=== PATIENT | male | born 1985 ===

== ENCOUNTER 2017-04-23 16:17 | Emergency (ER) | payer OTHER ==
[2017-04-23 16:23] VITALS: BP 153/87; PULSE 70; RESP 20; TEMP 98.8
--- NOTE | 2017-04-23 16:48 | ED ---
ENT HPI - General Chief complaint: Dental/Oral Stated complaint: Tooth Ache Time Seen by Provider: 04/23/17 16:37 Source: patient, RN notes reviewed, old records reviewed Mode of arrival: ambulatory Limitations: no limitations - History of Present Illness Initial comments: Is a 31-year-old male presenting to the emergency Department chief complaint of left lower tooth pain. Patient reports it's been painful since Sunday. He reports his symptoms are drawn Motrin but does not help. He states he did call a dentist and does plan to see him but he really needed a concern on antibiotic before hand. Patient denies any fever or chills, difficulty opening or closing his mouth. Patient reports that he is up-to-date on vaccinations. Patient reports never had tooth pain like this before. Patient denies any recent fever, chills, shortness of breath, chest pain, back pain, abdominal pain, nausea vomiting, numbness or tingling, dysuria or hematuria, constipation or diarrhea, headaches or visual changes, or any other current symptoms - Related Data Previous Rx's Medication Instructions Recorded HYDROcodone/APAP 5-325MG [[place] 1 tab PO Q6HR PRN #12 tab 04/23/17 5-325] Penicillin V Potassium [Pen Vee K] 500 mg PO QID #40 tab 04/23/17 Allergies Allergy/AdvReac Type Severity Reaction Status Date / Time No Known Allergies Allergy Verified 04/23/17 16:36 Review of Systems ROS Statement: Those systems with pertinent positive or pertinent negative responses have been documented in the HPI. ROS Other: All systems not noted in ROS Statement are negative. Past Medical History Past Medical History: No Reported History History of Any Multi-Drug Resistant Organisms: None Reported Past Surgical History: Cholecystectomy Past Psychological History: No Psychological Hx Reported Smoking Status: Current every day smoker Past Alcohol Use History: Occasional Past Drug Use History: None Reported General Exam - General Exam Comments Initial Comments: Pleasant 31-year-old male. No acute distress. Limitations: no limitations General appearance: alert, in no apparent distress Head exam: Present: atraumatic, normocephalic, normal inspection Eye exam: Present: normal appearance, PERRL, EOMI. Absent: scleral icterus, conjunctival injection, periorbital swelling ENT exam: Present: normal exam, mucous membranes moist, other (Patient reports pain over tooth #19. Patient has evidence of a minor chip in the tooth.) Neck exam: Present: normal inspection. Absent: tenderness, meningismus, lymphadenopathy Respiratory exam: Present: normal lung sounds bilaterally. Absent: respiratory distress, wheezes, rales, rhonchi, stridor Cardiovascular Exam: Present: regular rate, normal rhythm, normal heart sounds. Absent: systolic murmur, diastolic murmur, rubs, gallop, clicks GI/Abdominal exam: Present: soft, normal bowel sounds. Absent: distended, tenderness, guarding, rebound, rigid Extremities exam: Present: normal inspection, full ROM, normal capillary refill. Absent: tenderness, pedal edema, joint swelling, calf tenderness Back exam: Present: normal inspection Neurological exam: Present: alert, oriented X3, CN II-XII intact Psychiatric exam: Present: normal affect, normal mood Skin exam: Present: warm, dry, intact, normal color. Absent: rash Course Vital Signs 04/23/17 16:21 Temperature 98.8 F Pulse Rate 70 Respiratory 20 Rate Blood Pressure 153/87 O2 Sat by Pulse 98 Oximetry Medical Decision Making - Medical Decision Making Is a 31-year-old male presenting to the emergency Department chief complaint of left lower tooth pain. Patient reports it's been painful since Sunday. He reports his symptoms are drawn Motrin but does not help. He states he did call a dentist and does plan to see him but he really needed a concern on antibiotic before hand. Patient denies any fever or chills, difficulty opening or closing his mouth. Patient reports that he is up-to-date on vaccinations. Patient reports never had tooth pain like this before. Patient reports that he does have some irritation over tooth #19. Patient was started on Pen-Vee K and given pain medication. He does plan to follow-up with a dentist within the next 2-3 days. Patient agrees to treatment plan will comply. Return parameters were discussed. He does have full range of motion of the jaw. No significant swelling. Disposition Clinical Impression: Pain, dental Disposition: HOME SELF-CARE Condition: Good Instructions: Toothache (ED) Additional Instructions: [facility] [address] [place] [address] [phone] (existing clients only) For new clients: [phone] 1st consult: $50 (includes Xrays) Usually 30% less then private dentist for visits after. [employer] Have to pay $50 for Xrays anmd rest is covered. [phone] Prescriptions: HYDROcodone/APAP 5-325MG [[place] 5-325] 1 tab PO Q6HR PRN #12 tab PRN Reason: Pain Penicillin V Potassium [Pen Vee K] 500 mg PO QID #40 tab Referrals: Jenna Domingo DO [Primary Care Provider] - 1-2 days Time of Disposition: 16:48
== END 2017-04-23 16:59 | disposition home or self-care (01) ==
LOC: EC 16:17
DX: K08.89 Other specified disorders of teeth and supporting structures (principal); F17.200 Nicotine dependence, unspecified, uncomplicated
CPT/HCPCS: 99283

== ENCOUNTER 2019-06-11 17:03 | Observation (INO) | payer OTHER ==
[2019-06-11] MEDS ORDERED: MORPHINE SULFATE 4 MG/ML SYRINGE IV STA (17:27)
[2019-06-11] MEDS ORDERED: NITROGLYCERIN OINT 1 INCH/GM PACKET TOPICAL STA (17:27)
[2019-06-11] MEDS ORDERED: ASPIRIN 81 MG PO STA (17:27)
--- NOTE | 2019-06-11 17:29 | ED ---
General Adult HPI - General Chief complaint: Shortness of Breath Stated complaint: chest pain Time Seen by Provider: 06/11/19 17:12 Source: patient, EMS, RN notes reviewed Mode of arrival: EMS Limitations: no limitations - History of Present Illness Initial comments: Patient is a pleasant 33-year-old male presenting to the emergency Department with complaints of chest discomfort and shortness of breath. Onset was around an hour ago while cutting the grass. Discomfort was fairly sudden. Patient has severe discomfort of his right chest that he feels like it is on the inside. Patient also feels like he cannot take a deep breath. No history of similar symptoms previously. No improvement of symptoms with medication by EMS. No vomiting or diaphoresis. No history of similar symptoms. Sleep. No leg pain or leg swelling. - Related Data Home Medications Medication Instructions Recorded Confirmed No Known Home Medications 06/11/19 06/11/19 Allergies Allergy/AdvReac Type Severity Reaction Status Date / Time No Known Allergies Allergy Verified 06/11/19 17:47 Review of Systems ROS Statement: Those systems with pertinent positive or pertinent negative responses have been documented in the HPI. ROS Other: All systems not noted in ROS Statement are negative. Constitutional: Denies: fever Eyes: Denies: eye pain ENT: Denies: ear pain Respiratory: Reports: dyspnea Cardiovascular: Reports: chest pain Endocrine: Denies: fatigue Gastrointestinal: Denies: abdominal pain Genitourinary: Denies: dysuria Musculoskeletal: Denies: back pain Skin: Denies: rash Neurological: Denies: weakness Past Medical History Past Medical History: No Reported History History of Any Multi-Drug Resistant Organisms: None Reported Past Surgical History: Cholecystectomy Past Psychological History: No Psychological Hx Reported Smoking Status: Current every day smoker Past Alcohol Use History: Occasional Past Drug Use History: None Reported General Exam Limitations: no limitations General appearance: alert, other (Patient does appear uncomfortable) Head exam: Present: atraumatic, normocephalic Eye exam: Present: normal appearance, PERRL ENT exam: Present: normal oropharynx Neck exam: Present: normal inspection Respiratory exam: Present: normal lung sounds bilaterally. Absent: respiratory distress Cardiovascular Exam: Present: regular rate, normal rhythm Expanded Peripheral pulses: 2+: Radial (R), Radial (L), Dorsalis Pedis (R), Dorsalis Pedis (L) GI/Abdominal exam: Present: soft. Absent: distended, tenderness, guarding, rebound, rigid Extremities exam: Present: normal inspection. Absent: pedal edema, calf tenderness Back exam: Present: normal inspection. Absent: tenderness Neurological exam: Present: alert Psychiatric exam: Present: anxious Skin exam: Present: normal color Course Vital Signs 06/11/19 06/11/19 06/11/19 17:08 17:10 17:15 Temperature 99.3 F Pulse Rate 94 Respiratory 28 H Rate Blood Pressure 135/94 135/94 O2 Sat by Pulse 98 95 94 L Oximetry 06/11/19 06/11/19 06/11/19 17:20 17:30 17:40 Temperature Pulse Rate 86 89 66 Respiratory 31 H 18 17 Rate Blood Pressure 147/99 147/99 145/104 O2 Sat by Pulse 96 98 98 Oximetry 06/11/19 06/11/19 06/11/19 17:41 17:50 18:00 Temperature Pulse Rate 78 65 Respiratory 28 H 32 H 20 Rate Blood Pressure 128/89 128/89 O2 Sat by Pulse 98 99 Oximetry 06/11/19 18:10 Temperature Pulse Rate 67 Respiratory 24 Rate Blood Pressure 124/84 O2 Sat by Pulse 98 Oximetry - Reevaluation(s) Reevaluation #1: 06/11/19 17:51 Patient and family updated on results so far EKG Findings - EKG Comments: EKG Findings:: Normal sinus rhythm 84. MN 118. QRS 92. QT 354. QTC 418. Normal axis. Normal QRS. No acute ST change. Medical Decision Making - Medical Decision Making Patient reevaluated and resting comfortably in bed. Patient is symptom-free at this time. Patient updated on results and plan. Case was discussed in detail with Dr. cotto, who will admit covering for hospital call. - Lab Data Result diagrams: 06/11/19 17:15 06/11/19 17:15 Lab Results 06/11/19 06/11/19 06/11/19 Range/Units 17:15 17:15 17:15 WBC 11.6 H (3.8-10.6) k/uL RBC 6.15 H (4.30-5.90) m/uL Hgb 16.4 (13.0-17.5) gm/dL Hct 50.2 (39.0-53.0) % MCV 81.6 (80.0-100.0) fL MCH 26.6 (25.0-35.0) pg MCHC 32.6 (31.0-37.0) g/dL RDW 14.2 (11.5-15.5) % Plt Count 321 (150-450) k/uL Neutrophils % 74 % Lymphocytes % 21 % Monocytes % 4 % Eosinophils % 1 % Basophils % 0 % Neutrophils # 8.5 H (1.3-7.7) k/uL Lymphocytes # 2.5 (1.0-4.8) k/uL Monocytes # 0.4 (0-1.0) k/uL Eosinophils # 0.1 (0-0.7) k/uL Basophils # 0.1 (0-0.2) k/uL PT 11.9 (9.0-12.0) sec INR 1.1 (<1.2) APTT 23.5 (22.0-30.0) sec D-Dimer 0.41 (<0.60) mg/L FEU Sodium 141 (137-145) mmol/L Potassium 4.2 (3.5-5.1) mmol/L Chloride 109 H (98-107) mmol/L Carbon Dioxide 19 L (22-30) mmol/L Anion Gap 13 mmol/L BUN 17 (9-20) mg/dL Creatinine 0.82 (0.66-1.25) mg/dL Est GFR (CKD-EPI)AfAm >90 (>60 ml/min/1.73 sqM) Est GFR (CKD-EPI)NonAf >90 (>60 ml/min/1.73 sqM) Glucose 100 H (74-99) mg/dL Calcium 9.4 (8.4-10.2) mg/dL Magnesium 1.7 (1.6-2.3) mg/dL Total Bilirubin 0.9 (0.2-1.3) mg/dL AST 40 (17-59) U/L ALT 17 L (21-72) U/L Alkaline Phosphatase 91 (38-126) U/L Creatine Kinase 50 L (55-170) U/L Troponin I (0.000-0.034) ng/mL Total Protein 6.2 L (6.3-8.2) g/dL Albumin 3.8 (3.5-5.0) g/dL 06/11/19 Range/Units 17:15 WBC (3.8-10.6) k/uL RBC (4.30-5.90) m/uL Hgb (13.0-17.5) gm/dL Hct (39.0-53.0) % MCV (80.0-100.0) fL MCH (25.0-35.0) pg MCHC (31.0-37.0) g/dL RDW (11.5-15.5) % Plt Count (150-450) k/uL Neutrophils % % Lymphocytes % % Monocytes % % Eosinophils % % Basophils % % Neutrophils # (1.3-7.7) k/uL Lymphocytes # (1.0-4.8) k/uL Monocytes # (0-1.0) k/uL Eosinophils # (0-0.7) k/uL Basophils # (0-0.2) k/uL PT (9.0-12.0) sec INR (<1.2) APTT (22.0-30.0) sec D-Dimer (<0.60) mg/L FEU Sodium (137-145) mmol/L Potassium (3.5-5.1) mmol/L Chloride (98-107) mmol/L Carbon Dioxide (22-30) mmol/L Anion Gap mmol/L BUN (9-20) mg/dL Creatinine (0.66-1.25) mg/dL Est GFR (CKD-EPI)AfAm (>60 ml/min/1.73 sqM) Est GFR (CKD-EPI)NonAf (>60 ml/min/1.73 sqM) Glucose (74-99) mg/dL Calcium (8.4-10.2) mg/dL Magnesium (1.6-2.3) mg/dL Total Bilirubin (0.2-1.3) mg/dL AST (17-59) U/L ALT (21-72) U/L Alkaline Phosphatase (38-126) U/L Creatine Kinase (55-170) U/L Troponin I <0.012 (0.000-0.034) ng/mL Total Protein (6.3-8.2) g/dL Albumin (3.5-5.0) g/dL - Radiology Data Radiology results: image reviewed (Chest x-ray shows no acute process) Disposition Clinical Impression: Chest pain Disposition: ADMITTED IP TO THIS HOSP Is patient prescribed a controlled substance at d/c from ED?: No Referrals: None,Stated [Primary Care Provider] - 1-2 days Decision Time: 18:31
[2019-06-11 17:45] LABS: Basophils # (A) 0.1 k/uL (0-0.2); Basophils % (A) 0 %; Eosinophils # (A) 0.1 k/uL (0-0.7); Eosinophils % (A) 1 %; HCT 50.2 % (39.0-53.0); HGB 16.4 gm/dL (13.0-17.5); Lymphocytes # (A) 2.5 k/uL (1.0-4.8); Lymphocytes % (A) 21 %; MCH 26.6 pg (25.0-35.0); MCHC 32.6 g/dL (31.0-37.0); MCV 81.6 fL (80.0-100.0); Mean Platelet Volume 7.1; Monocytes # (A) 0.4 k/uL (0-1.0); Monocytes % (A) 4 %; Neutrophils # (A) 8.5 k/uL (1.3-7.7); Neutrophils % (A) 74 %; Platelet Count 321 k/uL (150-450); RBC 6.15 m/uL (4.30-5.90); RDW 14.2 % (11.5-15.5); WBC 11.6 k/uL (3.8-10.6)
--- NOTE | 2019-06-11 17:46 | XR ---
EXAMINATION: XR chest 1V portable DATE AND TIME: 06/11/2019 5:35 PM CLINICAL INDICATION: PHH; chest pain TECHNIQUE: AP upright portable COMPARISON: None FINDINGS: The lungs are clear. The pleural spaces are negative. The cardiac silhouette is not enlarged. The remainder of the mediastinal silhouette is unremarkable. The skeletal structures and soft tissues are negative for acute findings. IMPRESSION: NO ACUTE PROCESS.
[2019-06-11 17:58] LABS: D-Dimer 0.41 mg/L FEU (<0.60); INR 1.1 (<1.2); Partial Thromboplastin Time 23.5 sec (22.0-30.0); Prothrombin Time 11.9 sec (9.0-12.0)
[2019-06-11 18:19] LABS: ALT 17 U/L (21-72); AST 40 U/L (17-59); African American GFR (CKD) >90 (>60 ml/min/1.73 sqM); Albumin 3.8 g/dL (3.5-5.0); Alkaline Phosphatase 91 U/L (38-126); Anion Gap 13 mmol/L; Blood Urea Nitrogen 17 mg/dL (9-20); Calcium 9.4 mg/dL (8.4-10.2); Carbon Dioxide 19 mmol/L (22-30); Chloride 109 mmol/L (98-107); Creatine Kinase 50 U/L (55-170); Glucose 100 mg/dL (74-99); Magnesium 1.7 mg/dL (1.6-2.3); Potassium 4.2 mmol/L (3.5-5.1); Sodium 141 mmol/L (137-145); Total Bilirubin 0.9 mg/dL (0.2-1.3); Total Protein 6.2 g/dL (6.3-8.2)
[2019-06-11] MEDS ORDERED: NITROGLYCERIN SL TABS 0.4 MG TAB SUBLINGUAL PRN (18:32)
[2019-06-11 19:56] VITALS: RESP 16
--- NOTE | 2019-06-11 19:56 | P.HPIM ---
History of Present Illness H&P Date: 06/11/19 Chief Complaint: Chest pain The patient is a 33-year-old male with no significant past medical history other than smoking who presents to the ER via EMS with chief complain of chest pain. Apparently the patient began having right-sided discomfort when mowing the lawn earlier today, the patient reported severe and nonradiating right-sided chest pressure with associated shortness of breath and episodes of lightheadedness, the patient reported he could not get any air in and reported that his discomfort was worsened by deep breaths, he denies any cough, denies any subjective fevers chills or night sweats. The patient reports the pain was relieved by nitroglycerin and currently rates his pain at a 2/10. The patient denies any abdominal pain nausea vomiting or diaphoresis. He reports a family history of congestive heart failure and hypertension, he denies any focal weakness slurred speech or facial droop In the ER the patient had a comprehensive workup white count was 11.6 serum sodium 141 serum potassium 4.2 serum bicarb 19 blood sugar 100, EKG showed normal sinus rhythm with a rate of 84. Chest x-ray showed no acute process, her troponin was less than 0.012. Patient was recommended for admission to rule out ACS Review of Systems Pertinent positives per HPI all other results as well as eyes negative Past Medical History Past Medical History: No Reported History History of Any Multi-Drug Resistant Organisms: None Reported Past Surgical History: Cholecystectomy Past Psychological History: No Psychological Hx Reported Smoking Status: Current every day smoker Past Alcohol Use History: Occasional Past Drug Use History: None Reported Medications and Allergies Home Medications Medication Instructions Recorded Confirmed Type No Known Home Medications 06/11/19 06/11/19 History Allergies Allergy/AdvReac Type Severity Reaction Status Date / Time No Known Allergies Allergy Verified 06/11/19 17:47 Physical Exam Vitals: Vital Signs Temp Pulse Resp BP Pulse Ox 06/11/19 19:26 64 20 126/84 99 06/11/19 19:00 67 18 124/83 96 06/11/19 18:30 72 15 117/81 98 06/11/19 18:10 67 24 124/84 98 06/11/19 18:00 65 20 128/89 99 06/11/19 17:50 78 32 H 128/89 98 06/11/19 17:41 28 H 06/11/19 17:40 66 17 145/104 98 06/11/19 17:30 89 18 147/99 98 06/11/19 17:20 86 31 H 147/99 96 06/11/19 17:15 99.3 F 94 28 H 135/94 94 L 06/11/19 17:10 135/94 95 06/11/19 17:08 98 Intake and Output 06/11/19 06/11/19 06/11/19 06:59 14:59 22:59 Other: Weight 110.223 kg Constitutional: No acute distress, conversant, pleasant Eyes: Anicteric sclerae, moist conjunctiva, no lid-lag, PERRLA ENMT: NC/AT,Oropharynx clear, no erythema, exudates Neck:Supple, FROM, no masses, or JVD, No carotid bruits; No thyromegaly Lungs: Clear to auscultation, Clear to percussion, Normal respiratory effort, no accessory muscle use Cardiovascular: Heart regular in rate and rhythm, No murmurs, gallops, or rubs no peripheral edema Abdominal: Soft Nontender, nom distended, no guarding, no rebound or rigidity, Normoactive bowel sounds No hepatomegaly, No splenomegaly, No palpable mass No abdominal wall hernia noted Skin: Normal temperature, tone, texture, turgor, No induration No subcutaneous nodules, No rash, lesions, No ulcers Extremities:No digital cyanosis No clubbing, Pedal pulses intact and symmetrical Radial pulses intact and symmetrical Normal gait and station, No calf tenderness Psychiatric: Alert and oriented to person, place and time, Appropriate affect Intact judgement Neuro: Muscles Strength 5/5 in all 4 extremities, Sensation to light touch grossly present throughout, Cranial nerves II-XII grossly intact. No focal sensory deficits Results CBC & Chem 7: 06/11/19 17:15 06/11/19 17:15 Labs: Abnormal Lab Results - Last 24 Hours (Table) 06/11/19 06/11/19 Range/Units 17:15 17:15 WBC 11.6 H (3.8-10.6) k/uL RBC 6.15 H (4.30-5.90) m/uL Neutrophils # 8.5 H (1.3-7.7) k/uL Chloride 109 H (98-107) mmol/L Carbon Dioxide 19 L (22-30) mmol/L Glucose 100 H (74-99) mg/dL ALT 17 L (21-72) U/L Creatine Kinase 50 L (55-170) U/L Total Protein 6.2 L (6.3-8.2) g/dL Assessment and Plan (1) Chest pain Current Visit: Yes Status: Acute Code(s): R07.9 - CHEST PAIN, UNSPECIFIED SNOMED Code(s): 00576229 (2) Smoking greater than 20 pack years Current Visit: Yes Status: Acute Code(s): F17.210 - NICOTINE DEPENDENCE, CIGARETTES, UNCOMPLICATED SNOMED Code(s): 25481575 (3) Elevated blood-pressure reading without diagnosis of hypertension Current Visit: Yes Status: Acute Code(s): R03.0 - ELEVATED BLOOD-PRESSURE READING, W/O DIAGNOSIS OF HTN SNOMED Code(s): 097465637 Plan: The patient is a 33-year-old that is placed on observation anticipated less than 2 midnight stay with chest pain with need to rule out ACS initial EKG negative for any significant acute ischemia troponin has been negative will continue to trend his troponins sequentially continue with routine chest pain orders continue daily aspirin nitro glycerin as needed and morphine, the patient's blood pressure is slightly elevated we'll continue to monitor closely. I will order echocardiogram and cardiology has been sick consulted from the ER, will also order UDS and further risk stratify by checking a lipid panel, patient is placed on nicotine patch. We'll continue to follow his clinical course. CODE STATUS: Full code Discussed plan of care with: Patient and his family Anticipated discharge; 1-[address]: Home Time with Patient: Greater than 30
[2019-06-11] MEDS ORDERED: ACETAMINOPHEN TAB 325 MG TAB PO PRN (20:42)
[2019-06-11] MEDS ORDERED: MELATONIN 3 MG TABLET PO PRN (22:37)
[2019-06-12] MEDS ORDERED: NITROGLYCERIN OINT 1 INCH/GM PACKET TOPICAL SCH
[2019-06-12 04:02] VITALS: BP 137/70; PULSE 59; TEMP 97.9
[2019-06-12 06:24] LABS: Cholesterol 148 mg/dL (<200); HDL Cholesterol 33 mg/dL (40-60); LDL Cholesterol,Calculated 99 mg/dL (0-99); Triglycerides 82 mg/dL (<150)
[2019-06-12] MEDS ORDERED: ASPIRIN 325 MG TAB PO SCH (09:00)
[2019-06-12] MEDS ORDERED: NICOTINE 21MG/24HR PATCH TRANSDERM SCH (09:00)
--- NOTE | 2019-06-12 18:25 | P.DS ---
Providers Date of admission: 06/11/19 18:32 Expected date of discharge: 06/12/19 Attending physician: Mac Harvey MD Consults: 06/11/19 18:32 Consult Physician Urgent Consulting Provider: Toyin Thompson Consult Reason/Comments: cp Do you want consulting provider notified?: Yes Primary care physician: Stated None Hospital Course: This is a summary of care as patient left AGAINST MEDICAL ADVICE Discharge Diagnosis: Left AGAINST MEDICAL ADVICE Chest pain tobacco abuse elevated blood pressure Hospital Course: Patient is a 33-year-old male with no significant past medical history who presented to the emergency department with complaints of chest pain. On arrival to the ER he was tachypnea with respiratory rate of 28 but vital signs were otherwise within normal limits. Initial laboratory analysis showed elevated white blood cell count 11.6, low CO2 at 19, and a troponin of less than 0.012. EKG was nonischemic. He received nitroglycerin in the emergency department which decreased his chest pain to 2 out of 10. Remainder troponins were negative. Apparently patient desired to leave AGAINST MEDICAL ADVICE at 0640 AM and nurses subsequently completed appropriate paperwork for patient to leave AGAINST MEDICAL ADVICE. A total of 10 minutes of time were spent preparing this complex discharge summary . Patient Condition at Discharge: Undetermined Plan - Discharge Summary New Discharge Prescriptions: No Action No Known Home Medications Discharge Medication List No Known Home Medications 06/11/19 [History] Follow up Appointment(s)/Referral(s): None,Stated [Primary Care Provider] - 1-2 days Discharge Disposition: Left Against Medical Advice
== END 2019-06-12 05:50 | disposition left against medical advice (07) ==
LOC: EC 17:03 → 1SOBS 18:32
PROVIDERS: ADMIT Internal Medicine; ATTEND Internal Medicine
DX: R07.89 Other chest pain (principal); R06.82 Tachypnea, not elsewhere classified; F17.210 Nicotine dependence, cigarettes, uncomplicated; R03.0 Elevated blood-pressure reading, without diagnosis of hypertension; Z90.49 Acquired absence of other specified parts of digestive tract; Z82.49 Family history of ischemic heart disease and other diseases of the circulatory system
CPT/HCPCS: 96374; 99285; 36415; 93005; 85379; 80061; 80053; 82550; 83735; 84484 ×2; 85025; 85610; 85730; 71045; G0378 ×2; J2270

== ENCOUNTER 2019-12-23 14:13 | Inpatient (IN) | payer OTHER, MEDICAID ==
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
[2019-12-23 18:53] LABS: Amphetamine Screen,Urine Not Detected (NotDetected); Barbiturate Screen,Urine Not Detected (NotDetected); Benzodiazepines Screen,Urine Detected (NotDetected); Cocaine Screen,Urine Not Detected (NotDetected); Methadone Screen, Urine Not Detected (NotDetected); Opiate Screen,Urine Not Detected (NotDetected); Oxycodone Screen, Urine Not Detected (NotDetected); Phencyclidine Screen,Urine Not Detected (NotDetected); Tricyclic Antidepressant,Urine Not Detected (NotDetected); Urn Cannabinoid Scrn Detected (NotDetected)
[2019-12-23] MEDS ORDERED: LORazepam 1 MG TAB PO STA (18:54)
[2019-12-23] MEDS ORDERED: LORazepam 2 MG/ML INJ IM STA (20:00)
[2019-12-23] MEDS ORDERED: ZIPRASIDONE 20 MG VIAL IM STA (20:00)
[2019-12-23] MEDS ORDERED: ACETAMINOPHEN TAB 325 MG TAB PO PRN (20:26)
[2019-12-23] MEDS ORDERED: ZIPRASIDONE 20 MG VIAL IM PRN (20:26)
[2019-12-23] MEDS ORDERED: LORazepam 1 MG TAB PO PRN (20:26)
[2019-12-23] MEDS ORDERED: MAGNESIUM HYDROXIDE 2,400 MG/10 ML CUP PO PRN (20:26)
[2019-12-23] MEDS ORDERED: MAG HYDROX/AL HYDROX/SIMETH 30 ML CUP PO PRN (20:26)
[2019-12-23] MEDS ORDERED: LORazepam 2 MG/ML INJ IM PRN (20:32)
[2019-12-23] MEDS ORDERED: MELATONIN 3 MG TABLET PO SCH (21:15)
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
[2019-12-24] MEDS: NICOTINE 14MG/24HR PATCH TRANSDERM SCH ×2 (00:14→09:04)
[2019-12-24 08:16] LABS: Basophils % (A) 1 %; Eosinophils # (A) 0.4 k/uL (0-0.7); Eosinophils % (A) 7 %; HCT 45.6 % (39.0-53.0); HGB 15.2 gm/dL (13.0-17.5); Lymphocytes # (A) 2.4 k/uL (1.0-4.8); Lymphocytes % (A) 45 %; MCH 28.1 pg (25.0-35.0); MCHC 33.3 g/dL (31.0-37.0); MCV 84.4 fL (80.0-100.0); Mean Platelet Volume 7.8; Monocytes # (A) 0.3 k/uL (0-1.0); Monocytes % (A) 6 %; Neutrophils # (A) 2.1 k/uL (1.3-7.7); Neutrophils % (A) 40 %; Platelet Count 261 k/uL (150-450); RDW 13.6 % (11.5-15.5); WBC 5.3 k/uL (3.8-10.6)
[2019-12-24 08:42] LABS: ALT 34 U/L (4-49); AST 30 U/L (17-59); African American GFR (CKD) >90 (>60 ml/min/1.73 sqM); Albumin 4.1 g/dL (3.5-5.0); Alkaline Phosphatase 94 U/L (38-126); Anion Gap 8 mmol/L; Blood Urea Nitrogen 21 mg/dL (9-20); Calcium 9.8 mg/dL (8.4-10.2); Carbon Dioxide 26 mmol/L (22-30); Chloride 106 mmol/L (98-107); Cholesterol 158 mg/dL (<200); Glucose 106 mg/dL (74-99); HDL Cholesterol 41 mg/dL (40-60); LDL Cholesterol,Calculated 101 mg/dL (0-99); Non-African American GFR(CKD) >90 (>60 ml/min/1.73 sqM); Potassium 4.7 mmol/L (3.5-5.1); Sodium 140 mmol/L (137-145); Total Protein 6.7 g/dL (6.3-8.2); Triglycerides 80 mg/dL (<150)
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
[2019-12-24] MEDS: ESCITALOPRAM 5 MG TAB PO SCH (14:19)
[2019-12-24 19:12] LABS: Hemoglobin A1C 5.2 % (4.0-6.0)
[2019-12-24] MEDS: MELATONIN 5 MG TABLET PO SCH (21:45)
[2019-12-25] MEDS: ESCITALOPRAM 5 MG TAB PO SCH (09:54)
[2019-12-25] MEDS: NICOTINE 14MG/24HR PATCH TRANSDERM SCH ×2 (09:54→12:46)
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
[2019-12-25] MEDS: lamoTRIgine 25 MG TAB PO SCH ×2 (12:27→22:03)
[2019-12-25] MEDS: MELATONIN 5 MG TABLET PO SCH (22:03)
--- NOTE | 2019-12-26 09:37 | P.PN ---
Progress Note - Text Progress Note Date: 12/26/19 Interval History: Patient was seen wandering the hallways this morning and was directable and ag reeable to speak to narrative writer in the office. Patient continues to be somewhat tearful however appears to be more directable during the interview and was apologetic for his emotional state and behaviors and remarks that he was stating on admission. Patient spoke about the stressors that he is dealing with in his life including divorce and also missing the birthday of his daughter. Patient acknowledges that he needs help and needs to be in the hospital. Patient states that he has taken his medications and claims that the Lamictal is helping him stay calmer during the day. He states that the Lexapro is also helping his mood and states that he does not feel jitteriness today and states that "it must be because I wasn't eating". He admits to some anxiety. He states that he slept through the night however was awoken by a loud and aggressive patient and always. At this time patient denies any suicidal or homical ideations, intent or plan. Patient denies any auditory, visual hallucinations and denies any paranoia or delusions. Patient states that he is going to more groups now. Mental Status Exam: General Appearance: Patient appears to be stated age is alert, more directable today and less irritable at times. Patient appears to have improving hygiene and grooming. Behavior: Patient is seated without any agitated behavior. tearful. Speech: Patient's speech is fluent and nonpressured. Mood/Affect: Patient reports their mood is depressed, mildly improving, affect is congruent and tearful. Suicidality/Homicidality: Patient denies having any homicidal ideation intent or plan. Denies any suicidal ideations intent or plan Perceptions: Patient denies any visual hallucinations and denies any auditory hallucinations Though content/process: There is no evidence of any delusional thought content and thought process is linear and goal-directed. Preoccupied with discharge and his stressors. Memory and concentration: AOX3, grossly intact for the purposes of this session. Judgment and insight: poor, improving mildly. Assessment Major depressive disorder, severe, without psychotic features Nicotine dependence Plan: -Patient continues to meet criteria for inpatient psychiatric admission for symptom stabilization and safety. Patient declined signing adult voluntary form and refused to sign medication consent and is placed in patient's chart. Court date is set for 12/31/2019 -Medications: Continue with Lexapro 5 mg daily for mood/anxiety and we will consider increasing dose tomorrow. Continue with melatonin 5 mg nightly for sleep. Switched Lamictal 50 mg daily for mood stabilization/depression. -When necessary Ativan for agitation/aggression. -NRT - nicotine patch -SW on board for discharge planning. Encourage patient to participate in groups to work on coping skills. Waiting on patient's deferral or court date is next week. Patient may be suitable for discharge early next week.
[2019-12-26] MEDS ORDERED: lamoTRIgine 25 MG TAB PO ONE (10:30)
[2019-12-26] MEDS: lamoTRIgine 25 MG TAB PO SCH (10:31)
[2019-12-26] MEDS: NICOTINE 14MG/24HR PATCH TRANSDERM SCH (10:37)
[2019-12-26] MEDS: ESCITALOPRAM 5 MG TAB PO SCH (10:37)
[2019-12-26] MEDS ORDERED: lamoTRIgine 25 MG TAB PO SCH (21:00)
[2019-12-26] MEDS: MELATONIN 5 MG TABLET PO SCH (21:41)
[2019-12-27 06:11] VITALS: TEMP 98.8
[2019-12-27] MEDS: ESCITALOPRAM 5 MG TAB PO SCH (09:25)
[2019-12-27] MEDS: lamoTRIgine 25 MG TAB PO SCH (09:25)
[2019-12-27] MEDS: NICOTINE 14MG/24HR PATCH TRANSDERM SCH (09:25)
--- NOTE | 2019-12-27 09:32 | P.PN ---
Progress Note - Text Progress Note Date: 12/27/19 Interval History: Patient was seen wandering the hallways this morning and was directable and ag reeable to speak to display card writer in the office. He states that he is continuing to improve with regard to his mood and taking his medications. He states that he spoke with his sister and his daughter last night and states that it was his daughter's birthday and he feels that he is not with her. Patient is more future oriented and more goal driven today. He states that he slept throughout the night with no complaints. At this time patient denies any suicidal or homical ideations, intent or plan. Patient denies any auditory, visual hallucinations and denies any paranoia or delusions. Patient states that he is going to groups Mental Status Exam: General Appearance: Patient appears to be stated age is alert, more directable today. Patient appears to have improving hygiene and grooming. Behavior: Patient is seated without any agitated behavior Speech: Patient's speech is fluent and nonpressured. Mood/Affect: Patient reports their mood is mildly improving, affect is congruent Suicidality/Homicidality: Patient denies having any homicidal ideation intent or plan. Denies any suicidal ideations intent or plan Perceptions: Patient denies any visual hallucinations and denies any auditory carbajal llucinations Though content/process: There is no evidence of any delusional thought content and thought process is linear and goal-directed. Preoccupied with discharge and his stressors. Memory and concentration: AOX3, grossly intact for the purposes of this session. Judgment and insight:improving mildly. Assessment Major depressive disorder, severe, without psychotic features Nicotine dependence Plan: -Patient continues to meet criteria for inpatient psychiatric admission for symptom stabilization and safety. Patient declined signing adult voluntary form and refused to sign medication consent and is placed in patient's chart. Patient signed deferral on Sunday and agrees to treatment. -Medications: Continue with Lexapro 5 mg daily for mood/anxiety and we will consider increasing dose tomorrow. Continue with melatonin 5 mg nightly for sleep. Switched Lamictal 50 mg daily for mood stabilization/depression. -When necessary Ativan for agitation/aggression. -NRT - nicotine patch -SW on board for discharge planning. Encourage patient to participate in groups to work on coping skills. Patient signed deferral and most likely will be ready for discharge Sunday.
[2019-12-27] MEDS: MELATONIN 5 MG TABLET PO SCH (21:55)
[2019-12-28 06:57] VITALS: RESP 16
[2019-12-28] MEDS: NICOTINE 14MG/24HR PATCH TRANSDERM SCH (08:44)
[2019-12-28] MEDS: ESCITALOPRAM 5 MG TAB PO SCH (08:45)
[2019-12-28] MEDS: lamoTRIgine 25 MG TAB PO SCH (08:45)
--- NOTE | 2019-12-28 10:20 | P.PN ---
Progress Note - Text Progress Note Date: 12/28/19 Interval History: Patient was seen lying in bed this morning and was directable and agreeable to speak to senior copywriter. He states that he is continuing to improve with regard to his mood and also anxiety. Patient remains focused on his discharge and states that he has been taking his medications. Patient appears to have a brighter affect today. Patient is more future oriented and states that he has been attending groups. He states that he slept throughout the night with no complaints. At this time patient denies any suicidal or homical ideations, intent or plan. Patient denies any auditory, visual hallucinations and denies any paranoia or delusions. Patient states that he is checking his skin regularly and has not seen any rash associated with medications. Mental Status Exam: General Appearance: Patient appears to be stated age is alert, more directable today. Patient appears to have improving hygiene and grooming. Behavior: Patient is seated without any agitated behavior Speech: Patient's speech is fluent and nonpressured. Mood/Affect: Patient reports their mood is mildly improving, affect is congruent and is brighter Suicidality/Homicidality: Patient denies having any homicidal ideation intent or plan. Denies any suicidal ideations intent or plan Perceptions: Patient denies any visual hallucinations and denies any auditory hallucinations Though content/process: There is no evidence of any delusional thought content and thought process is linear and goal-directed. Focused on discharge Memory and concentration: AOX3, grossly intact for the purposes of this session. Judgment and insight:improving mildly. Assessment Major depressive disorder, severe, without psychotic features Nicotine dependence Plan: -Patient continues to meet criteria for inpatient psychiatric admission for symptom stabilization and safety. Patient initially declined signing adult voluntary form and refused to sign medication consent and is placed in patient's chart. Patient signed deferral on Sunday and agrees to treatment. -Medications: Continue with Lexapro 5 mg daily for mood/anxiety and we will consider increasing dose tomorrow. Continue with melatonin 5 mg nightly for sleep. Continue with Lamictal 50 mg daily for mood stabilization/depression. -When necessary Ativan for agitation/aggression. -NRT - nicotine patch -SW on board for discharge planning. Encourage patient to participate in groups to work on coping skills. Patient will most likely will be ready for discharge Sunday.
[2019-12-28] MEDS: MELATONIN 5 MG TABLET PO SCH (21:24)
[2019-12-29 07:22] VITALS: BP 135/87; PULSE 71
[2019-12-29] MEDS: ESCITALOPRAM 5 MG TAB PO SCH (08:53)
[2019-12-29] MEDS: NICOTINE 14MG/24HR PATCH TRANSDERM SCH (08:53)
[2019-12-29] MEDS: lamoTRIgine 25 MG TAB PO SCH (08:53)
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
== END 2019-12-29 12:05 | disposition home or self-care (01) | DRG 885 ==
LOC: EC 14:13 → 3MHU 19:47
PROVIDERS: ADMIT Psychiatry & Neurology Psychiatry; ATTEND Psychiatry & Neurology Psychiatry
DX: F33.2 Major depressive disorder, recurrent severe without psychotic features (principal); F12.10 Cannabis abuse, uncomplicated; Z71.51 Drug abuse counseling and surveillance of drug abuser; Z71.6 Tobacco abuse counseling; F17.210 Nicotine dependence, cigarettes, uncomplicated; F43.10 Post-traumatic stress disorder, unspecified; S00.83XA Contusion of other part of head, initial encounter; Y04.2XXA Assault by strike against or bumped into by another person, initial encounter; Z79.899 Other long term (current) drug therapy; Z82.49 Family history of ischemic heart disease and other diseases of the circulatory system; R45.1 Restlessness and agitation; Z90.49 Acquired absence of other specified parts of digestive tract
CPT/HCPCS: 70450; 70486; 80053; 80061; 80306; 82075; 83036; 84443; 85025; 99285

== ENCOUNTER 2021-06-22 22:40 | Emergency (ER) | payer OTHER ==
[2021-06-22] MEDS ORDERED: SODIUM CHLORIDE 0.9% 1,000 ML IV STA ×2 (22:44→23:39)
--- NOTE | 2021-06-22 23:03 | ED ---
Overdose HPI - General Chief Complaint: Overdose Stated Complaint: Overdose Time Seen by Provider: 06/22/21 22:44 Source: patient, EMS, RN notes reviewed, old records reviewed Mode of arrival: EMS Limitations: no limitations - History of Present Illness Initial Comments: This is a 35-year-old male to the ER for evaluation. Patient is very evasive during questioning. Unsure if patient did take heroin overdose. Heroin was found at the scene patient is refusing to admit, patient does have history of Suboxone. Patient again is complains of lightheadedness and dizziness here in the emergency department. Complaint: accidental overdose -: minutes(s) Intent: unwilling to say How Overdose Was Discovered: family/friend present at time Context: Intentional Overdose: drug/ETOH problems Context: Accidental Overdose: wanted to get high Associated Symptoms: syncope Treatments Prior to Arrival: none - Related Data Home Medications Medication Instructions Recorded Confirmed No Known Home Medications 06/23/21 06/23/21 Allergies Allergy/AdvReac Type Severity Reaction Status Date / Time No Known Allergies Allergy Verified 12/23/19 16:06 Review of Systems ROS Statement: Those systems with pertinent positive or pertinent negative responses have been documented in the HPI. ROS Other: All systems not noted in ROS Statement are negative. Past Medical History Past Medical History: No Reported History, Coronary Artery Disease (CAD), Heart Failure History of Any Multi-Drug Resistant Organisms: None Reported Past Surgical History: Cholecystectomy Past Psychological History: No Psychological Hx Reported Smoking Status: Current every day smoker Past Alcohol Use History: Occasional Past Drug Use History: Heroin, Marijuana - Past Family History Father Family Medical History: Hypertension Mother Family Medical History: No Reported History Additional Family Medical History / Comment(s): from MVA General Exam General appearance: alert, in no apparent distress Head exam: Present: atraumatic, normocephalic, normal inspection Eye exam: Present: normal appearance, PERRL, EOMI. Absent: scleral icterus, c onjunctival injection, periorbital swelling ENT exam: Present: normal exam, mucous membranes moist Neck exam: Present: normal inspection. Absent: tenderness, meningismus, lymphadenopathy Respiratory exam: Present: normal lung sounds bilaterally. Absent: respiratory distress, wheezes, rales, rhonchi, stridor Cardiovascular Exam: Present: regular rate, normal rhythm, normal heart sounds. Absent: systolic murmur, diastolic murmur, rubs, gallop, clicks GI/Abdominal exam: Present: soft, normal bowel sounds. Absent: distended, tenderness, guarding, rebound, rigid Extremities exam: Present: normal inspection, full ROM, normal capillary refill. Absent: tenderness, pedal edema, joint swelling, calf tenderness Back exam: Present: normal inspection Neurological exam: Present: alert, oriented X3, CN II-XII intact Psychiatric exam: Present: normal affect, normal mood Skin exam: Present: warm, dry, intact, normal color. Absent: rash Course Vital Signs 06/22/21 06/23/21 22:52 00:00 Temperature 98.1 F Pulse Rate 90 67 Respiratory 20 20 Rate Blood Pressure 124/95 O2 Sat by Pulse 96 98 Oximetry - Reevaluation(s) Reevaluation #1: 06/23/21 00:45 Medical record is reviewed Reevaluation #2: 06/23/21 00:45 Patient symptoms are dramatically improved throughout ER stay no recurrent episodes of loss of consciousness Reevaluation #3: 06/23/21 00:45 Patient informed results questions answered Reevaluation #4: 06/23/21 00:45 Patient has no current complaints Medical Decision Making - Medical Decision Making 35 male DF for evaluation today. He does present today for evaluation regards to likely opiate overdose, patient is evasive to questioning. Imaging is negative's he did hit his head. Labwork is normal patient can be discharged home - Lab Data Result diagrams: 06/22/21 23:02 06/22/21 23:02 Lab Results 06/22/21 06/22/21 Range/Units 23:02 23:02 WBC 5.1 (3.8-10.6) k/uL RBC 5.00 (4.30-5.90) m/uL Hgb 14.4 (13.0-17.5) gm/dL Hct 43.5 (39.0-53.0) % MCV 87.1 (80.0-100.0) fL MCH 28.8 (25.0-35.0) pg MCHC 33.1 (31.0-37.0) g/dL RDW 14.1 (11.5-15.5) % Plt Count 207 (150-450) k/uL MPV 7.8 Neutrophils % 54 % Lymphocytes % 37 % Monocytes % 4 % Eosinophils % 3 % Basophils % 1 % Neutrophils # 2.7 (1.3-7.7) k/uL Lymphocytes # 1.9 (1.0-4.8) k/uL Monocytes # 0.2 (0-1.0) k/uL Eosinophils # 0.1 (0-0.7) k/uL Basophils # 0.1 (0-0.2) k/uL Sodium 136 L (137-145) mmol/L Potassium 3.8 (3.5-5.1) mmol/L Chloride 106 (98-107) mmol/L Carbon Dioxide 25 (22-30) mmol/L Anion Gap 5 mmol/L BUN 19 (9-20) mg/dL Creatinine 0.72 (0.66-1.25) mg/dL Est GFR (CKD-EPI)AfAm >90 (>60 ml/min/1.73 sqM) Est GFR (CKD-EPI)NonAf >90 (>60 ml/min/1.73 sqM) Glucose 146 H (74-99) mg/dL Calcium 8.5 (8.4-10.2) mg/dL Total Bilirubin 0.2 (0.2-1.3) mg/dL AST 38 (17-59) U/L ALT 21 (4-49) U/L Alkaline Phosphatase 54 (38-126) U/L Creatine Kinase 199 H (55-170) U/L Total Protein 5.4 L (6.3-8.2) g/dL Albumin 3.3 L (3.5-5.0) g/dL Lipase 50 (23-300) U/L Salicylates <1.0 mg/dL Acetaminophen <10.0 ug/mL Serum Alcohol <10 mg/dL - EKG Data -: EKG Interpreted by Me (EKG is sinus rhythm 84 OR 138 QRS 86 QTc 475) - Radiology Data Radiology results: report reviewed (CT brain C-spine negative for traumatic injury), image reviewed Disposition Clinical Impression: Accidental drug overdose Disposition: HOME SELF-CARE Condition: Fair Instructions (If sedation given, give patient instructions): Adult Overdose (ED) Is patient prescribed a controlled substance at d/c from ED?: No Referrals: None,Stated [Primary Care Provider] - 1-2 days
[2021-06-22 23:13] LABS: Basophils # (A) 0.1 k/uL (0-0.2); Basophils % (A) 1 %; Eosinophils # (A) 0.1 k/uL (0-0.7); Eosinophils % (A) 3 %; HCT 43.5 % (39.0-53.0); HGB 14.4 gm/dL (13.0-17.5); Lymphocytes # (A) 1.9 k/uL (1.0-4.8); Lymphocytes % (A) 37 %; MCH 28.8 pg (25.0-35.0); MCHC 33.1 g/dL (31.0-37.0); MCV 87.1 fL (80.0-100.0); Mean Platelet Volume 7.8; Monocytes # (A) 0.2 k/uL (0-1.0); Monocytes % (A) 4 %; Neutrophils # (A) 2.7 k/uL (1.3-7.7); Neutrophils % (A) 54 %; Platelet Count 207 k/uL (150-450); RDW 14.1 % (11.5-15.5); WBC 5.1 k/uL (3.8-10.6)
[2021-06-22 23:26] LABS: ALT 21 U/L (4-49); AST 38 U/L (17-59); Acetaminophen <10.0 ug/mL; African American GFR (CKD) >90 (>60 ml/min/1.73 sqM); Albumin 3.3 g/dL (3.5-5.0); Alcohol <10 mg/dL; Alkaline Phosphatase 54 U/L (38-126); Anion Gap 5 mmol/L; Blood Urea Nitrogen 19 mg/dL (9-20); Calcium 8.5 mg/dL (8.4-10.2); Carbon Dioxide 25 mmol/L (22-30); Chloride 106 mmol/L (98-107); Creatine Kinase 199 U/L (55-170); Glucose 146 mg/dL (74-99); Lipase 50 U/L (23-300); Non-African American GFR(CKD) >90 (>60 ml/min/1.73 sqM); Potassium 3.8 mmol/L (3.5-5.1); Salicylate <1.0 mg/dL; Sodium 136 mmol/L (137-145); Total Bilirubin 0.2 mg/dL (0.2-1.3); Total Protein 5.4 g/dL (6.3-8.2)
[2021-06-22] MEDS ORDERED: ONDANSETRON 4 MG/2 ML VIAL IVP STA (23:39)
[2021-06-22] MEDS ORDERED: LORazepam 2 MG/ML INJ IV STA (23:39)
--- NOTE | 2021-06-23 00:07 | CT ---
EXAMINATION TYPE: CT brain cspine wo con DATE OF EXAM: 06/22/2021 COMPARISON: 12/23/2019 HISTORY: fall. injury to back of head CT DLP: 1401 mGycm Automated exposure control for dose reduction was used. Ventricles and sulci appear normal. There is no mass effect nor midline shift. There is no evidence o f intracranial hemorrhage. The skull base is intact. There is normal aeration of the mastoid sinuses. Sella turcica appears normal. The cervical vertebra have normal spacing and alignment. Posterior elements are intact. Facet joints are intact. Prevertebral soft tissues are intact. IMPRESSION: Normal CT scan of the cervical spine. Normal CT scan of the brain. Brain unchanged compared to old exam.
[2021-06-23] MEDS ORDERED: NALOXONE 0.4 MG/ML 1 ML VIAL IVP STA (00:59)
--- NOTE | 2021-06-23 01:03 | ED ---
Medical Decision Making - Medical Decision Making 35 male DF for evaluation of unknown overdose likely opiate. Went back into reevaluate patient prior to discharge and he was becoming more arousable, patient was given Narcan which she responded to. At this time patient will be needed to be admitted for evaluation monitoring of overdose - Lab Data Result diagrams: 06/22/21 23:02 06/22/21 23:02 Lab Results 06/22/21 06/22/21 Range/Units 23:02 23:02 WBC 5.1 (3.8-10.6) k/uL RBC 5.00 (4.30-5.90) m/uL Hgb 14.4 (13.0-17.5) gm/dL Hct 43.5 (39.0-53.0) % MCV 87.1 (80.0-100.0) fL MCH 28.8 (25.0-35.0) pg MCHC 33.1 (31.0-37.0) g/dL RDW 14.1 (11.5-15.5) % Plt Count 207 (150-450) k/uL MPV 7.8 Neutrophils % 54 % Lymphocytes % 37 % Monocytes % 4 % Eosinophils % 3 % Basophils % 1 % Neutrophils # 2.7 (1.3-7.7) k/uL Lymphocytes # 1.9 (1.0-4.8) k/uL Monocytes # 0.2 (0-1.0) k/uL Eosinophils # 0.1 (0-0.7) k/uL Basophils # 0.1 (0-0.2) k/uL Sodium 136 L (137-145) mmol/L Potassium 3.8 (3.5-5.1) mmol/L Chloride 106 (98-107) mmol/L Carbon Dioxide 25 (22-30) mmol/L Anion Gap 5 mmol/L BUN 19 (9-20) mg/dL Creatinine 0.72 (0.66-1.25) mg/dL Est GFR (CKD-EPI)AfAm >90 (>60 ml/min/1.73 sqM) Est GFR (CKD-EPI)NonAf >90 (>60 ml/min/1.73 sqM) Glucose 146 H (74-99) mg/dL Calcium 8.5 (8.4-10.2) mg/dL Total Bilirubin 0.2 (0.2-1.3) mg/dL AST 38 (17-59) U/L ALT 21 (4-49) U/L Alkaline Phosphatase 54 (38-126) U/L Creatine Kinase 199 H (55-170) U/L Total Protein 5.4 L (6.3-8.2) g/dL Albumin 3.3 L (3.5-5.0) g/dL Lipase 50 (23-300) U/L Salicylates <1.0 mg/dL Acetaminophen <10.0 ug/mL Serum Alcohol <10 mg/dL Disposition Clinical Impression: Accidental drug overdose Disposition: ADMITTED IP TO THIS HOSP Condition: Fair Instructions (If sedation given, give patient instructions): Adult Overdose (ED) Is patient prescribed a controlled substance at d/c from ED?: No Referrals: None,Stated [Primary Care Provider] - 1-2 days
[2021-06-23 01:19] VITALS: TEMP 98.2
[2021-06-23 01:22] VITALS: BP 121/71; PULSE 88; RESP 20
--- NOTE | 2021-06-23 01:28 | ED ---
Medical Decision Making - Medical Decision Making 35 male who is again reevaluated currently. Patient is awake now refusing admission to the hospital for monitoring. Again patient is awake and alert, patient understands and now admits to taking Suboxone. Patient understands and long-acting we do advise a monitor, he refuses, he does cyanotic medical advice accepting is being a possible outcome - Lab Data Result diagrams: 06/22/21 23:02 06/22/21 23:02 Lab Results 06/22/21 06/22/21 Range/Units 23:02 23:02 WBC 5.1 (3.8-10.6) k/uL RBC 5.00 (4.30-5.90) m/uL Hgb 14.4 (13.0-17.5) gm/dL Hct 43.5 (39.0-53.0) % MCV 87.1 (80.0-100.0) fL MCH 28.8 (25.0-35.0) pg MCHC 33.1 (31.0-37.0) g/dL RDW 14.1 (11.5-15.5) % Plt Count 207 (150-450) k/uL MPV 7.8 Neutrophils % 54 % Lymphocytes % 37 % Monocytes % 4 % Eosinophils % 3 % Basophils % 1 % Neutrophils # 2.7 (1.3-7.7) k/uL Lymphocytes # 1.9 (1.0-4.8) k/uL Monocytes # 0.2 (0-1.0) k/uL Eosinophils # 0.1 (0-0.7) k/uL Basophils # 0.1 (0-0.2) k/uL Sodium 136 L (137-145) mmol/L Potassium 3.8 (3.5-5.1) mmol/L Chloride 106 (98-107) mmol/L Carbon Dioxide 25 (22-30) mmol/L Anion Gap 5 mmol/L BUN 19 (9-20) mg/dL Creatinine 0.72 (0.66-1.25) mg/dL Est GFR (CKD-EPI)AfAm >90 (>60 ml/min/1.73 sqM) Est GFR (CKD-EPI)NonAf >90 (>60 ml/min/1.73 sqM) Glucose 146 H (74-99) mg/dL Calcium 8.5 (8.4-10.2) mg/dL Total Bilirubin 0.2 (0.2-1.3) mg/dL AST 38 (17-59) U/L ALT 21 (4-49) U/L Alkaline Phosphatase 54 (38-126) U/L Creatine Kinase 199 H (55-170) U/L Total Protein 5.4 L (6.3-8.2) g/dL Albumin 3.3 L (3.5-5.0) g/dL Lipase 50 (23-300) U/L Salicylates <1.0 mg/dL Acetaminophen <10.0 ug/mL Serum Alcohol <10 mg/dL Disposition Clinical Impression: Accidental drug overdose Disposition: Left Against Medical Advice Condition: Critical Is patient prescribed a controlled substance at d/c from ED?: No
== END 2021-06-23 01:35 | disposition left against medical advice (07) ==
LOC: EC 22:40 → 4SSUR 06-23 01:04 → UNDOADMOB 06-23 01:04 → 4SSUR 06-23 01:13 → EC 06-23 01:35
DX: T50.901A Poisoning by unspecified drugs, medicaments and biological substances, accidental (unintentional), initial encounter (principal); I50.9 Heart failure, unspecified; F17.200 Nicotine dependence, unspecified, uncomplicated; F12.90 Cannabis use, unspecified, uncomplicated; F11.90 Opioid use, unspecified, uncomplicated; Z82.49 Family history of ischemic heart disease and other diseases of the circulatory system
CPT/HCPCS: 82075; 93005; 80053; 82550; 83690; 85025; 80143; 80320; 80179; 72125; 70450; 96374; 96375 ×2; 96361; 99285; J2060; J2310; J2405

== ENCOUNTER 2022-03-12 08:17 | Emergency (ER) | payer OTHER ==
[2022-03-12 08:27] VITALS: BP 129/78; PULSE 61; RESP 18; TEMP 97.6
--- NOTE | 2022-03-12 08:42 | ED ---
General Adult HPI - General Chief complaint: Head Injury Stated complaint: head injury Time Seen by Provider: 03/12/22 08:22 Source: patient Mode of arrival: ambulatory Limitations: no limitations - History of Present Illness Initial comments: Dictation was produced using [employer] dictation software. please excuse any grammatical, word or spelling errors. Chief Complaint: 36-year-old male presents emergency Department with a headache, dizziness and sleepiness since head injury 2 days ago History of Present Illness: Patient is 36-year-old male on Sunday he was at work when he was drained on a ladder. 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 Patient not seeking medical attention until today. Patient has any loss of consciousness however he did state that the saw blackness over his vision that lasted for several seconds. Yesterday he started to develop a headache and sleepiness. Today presents to emergency department headache. He is here sure that he does not have any significant issue. Denies any numbness and paresthesias. No difficulty ambulating. The ROS documented in this emergency department record has been reviewed and confirmed by me. Those systems with pertinent positive or negative responses have been documented in the HPI. All other systems are other negative and/or noncontributory. PHYSICAL EXAM: General Impression: Alert and oriented x3, not in acute distress HEENT: There is similar laceration over the left anterior forehead, no active bleeding, palpatory tenderness around the site, extra-ocular movements intact, pupils equal and reactive to light bilaterally, mucous membranes moist. Cardiovascular: Heart regular rate and rhythm Chest: Able to complete full sentences, no retractions, no tachypnea Abdomen: abdomen soft, non-tender, non-distended, no organomegaly Musculoskeletal: Pulses present and equal in all extremities, no peripheral edema Motor: no focal deficits noted Neurological: CN II-XII grossly intact, no focal motor or sensory deficits noted Skin: Intact with no visualized rashes Psych: Normal affect and mood ED course: 36-year-old male presents to the emergency department for symptoms of concussion after injuring his head on Sunday. Patient has a laceration however it's outside of the window of repair. Vital signs upon arrival are within acceptable limits. Computed tomography scan the brain is unremarkable. Patient's symptoms likely secondary concussion. He is told to avoid any exertional activities for the time being until cleared by primary care doctor. - Related Data Home Medications Medication Instructions Recorded Confirmed No Known Home Medications 06/23/21 06/23/21 Allergies Allergy/AdvReac Type Severity Reaction Status Date / Time No Known Allergies Allergy Verified 03/12/22 08:27 Review of Systems ROS Statement: Those systems with pertinent positive or pertinent negative responses have been documented in the HPI. ROS Other: All systems not noted in ROS Statement are negative. Past Medical History Past Medical History: No Reported History, Coronary Artery Disease (CAD), Heart Failure History of Any Multi-Drug Resistant Organisms: None Reported Past Surgical History: Cholecystectomy Past Psychological History: No Psychological Hx Reported Smoking Status: Current every day smoker Past Alcohol Use History: Occasional Past Drug Use History: Heroin, Marijuana - Past Family History Father Family Medical History: Hypertension Mother Family Medical History: No Reported History Additional Family Medical History / Comment(s): from MVA General Exam Limitations: no limitations Course Vital Signs 03/12/22 08:22 Temperature 97.6 F Pulse Rate 61 Respiratory 18 Rate Blood Pressure 129/78 O2 Sat by Pulse 98 Oximetry Disposition Clinical Impression: Concussion Disposition: HOME SELF-CARE Condition: Good Instructions (If sedation given, give patient instructions): Concussion (ED) Is patient prescribed a controlled substance at d/c from ED?: No Referrals: None,Stated [Primary Care Provider] - 1-2 days
--- NOTE | 2022-03-12 08:52 | CT ---
EXAMINATION TYPE: CT brain wo con DATE OF EXAM: 03/12/2022 COMPARISON: 06/22/2021 INDICATION: head injury 2 days ago DLP: 1149.4 mGycm, Automated exposure control for dose reduction was used. CONTRAST: None CT of the brain is performed utilizing 3 mm thick sections through the posterior fossa and 3 mm thick sections through the remaining calvarium. Study is performed within 24 hours of arrival to the hosp [facility]. No abnormal hyperdensity is present to suggest an acute intracranial hemorrhage. No mass lesion is evident. No acute infarcts are evident. Ventricles and sulci are appropriate for the patient age. Paranasal sinuses and mastoid air cells within the [id number] are clear. No acute fractures are ev ident. IMPRESSIONS: 1. No acute intracranial process. MRI can be performed as clinically indicated.
== END 2022-03-12 09:17 | disposition home or self-care (01) ==
LOC: EC 08:17
DX: S06.0X9A Concussion with loss of consciousness of unspecified duration, initial encounter (principal); F17.200 Nicotine dependence, unspecified, uncomplicated; W19.XXXA Unspecified fall, initial encounter
CPT/HCPCS: 70450; 99284